=== PATIENT | female | born 1970 | race Caucasian/White ===

== ENCOUNTER → 2019-08-11 | Outpatient (CLI) | payer BC | END | disposition home or self-care (01) | LOC: CFH 13:17 | PROVIDERS: ATTEND Obstetrics & Gynecology Gynecology | DX: Z12.31 Encounter for screening mammogram for malignant neoplasm of breast (principal) | CPT/HCPCS: 77067 ==

== ENCOUNTER 2019-09-17 08:02 | Day surgery (SDC) | payer BC ==
[~2019-09-17] VITALS: Ht 165.1 cm; Wt 63.7 kg
[~2019-09-17 08:02] MED LIST: BUPIVACAINE/PF-EPI 0.5% 1:200K ONE; ESTR1PAT23 TD; LORA-439 PO
[2019-09-17] MEDS ORDERED: CHLORHEXIDINE 15 ML UDC MM ONE (09:00)
[2019-09-17] MEDS ORDERED: LACTATED RINGERS 1,000 ML IV SCH (09:01)
[2019-09-17 09:03] VITALS: BP 132/83
[2019-09-17 09:08] LABS: HCG UR SG 1.005 (1.003-1.030)
[2019-09-17] MEDS ORDERED: FENTANYL PF 100 MCG/2ML ONE (09:25)
[2019-09-17] MEDS ORDERED: ONDANSETRON 2MG/ML, 2ML ONE (10:45)
[2019-09-17] MEDS ORDERED: KETOROLAC 30 MG/1 ML ONE (10:45)
[2019-09-17] MEDS ORDERED: DEXAMETHASONE 4 MG/ML, 1ML ONE (10:45)
[2019-09-17] MEDS ORDERED: LIDOCAINE-MPF 2% ,5ML ONE (10:45)
[2019-09-17] MEDS ORDERED: CEFAZOLIN 1,000 MG ONE (10:45)
[2019-09-17] MEDS ORDERED: PROPOFOL 10 MG/ML, 20ML ONE (10:45)
[2019-09-17] MEDS ORDERED: ALBUTEROL SULFATE 2.5 MG/3 ML NPPB PRN (11:00)
[2019-09-17] MEDS ORDERED: hydrALAzine 20 MG/ML, 1ML IV PRN (11:00)
[2019-09-17] MEDS ORDERED: ACETAMINOPHEN 325 MG TABLET PO PRN (11:00)
[2019-09-17] MEDS ORDERED: OXYcodone 5 MG/5 ML ORAL.SOL UDC PO PRN (11:00)
[2019-09-17] MEDS ORDERED: FENTANYL PF 100 MCG/2ML IV PRN (11:00)
[2019-09-17] MEDS ORDERED: HYDROmorphone 1 MG/ML, 1ML INJ IVPush PRN (11:00)
[2019-09-17] MEDS ORDERED: PROMETHAZINE 25 MG/ML, 1ML IVPush PRN (11:00)
[2019-09-17] MEDS ORDERED: LABETALOL 5MG/ML, 20ML IV PRN (11:00)
[2019-09-17] MEDS ORDERED: MEPERIDINE/PF 25MG/0.5ML IVPush PRN (11:00)
== END 2019-09-17 12:25 | disposition home or self-care (01) ==
LOC: OUT 08:02
PROVIDERS: ATTEND Surgery
DX: D17.1 Benign lipomatous neoplasm of skin and subcutaneous tissue of trunk (principal); Z11.59 Encounter for screening for other viral diseases; Q21.3 Tetralogy of Fallot; Z79.899 Other long term (current) drug therapy; Z88.8 Allergy status to other drugs, medicaments and biological substances; Z98.890 Other specified postprocedural states
CPT/HCPCS: 21552; 36415; 81025; 87635; 88305; J0690; J1100; J1885; J2405; J2704; J3010; J7120